=== PATIENT | female | born 1945 | race Caucasian/White ===

== ENCOUNTER 2017-06-08 12:42 | Emergency (ER) | payer MEDICARE, OTHER ==
[~2017-06-08] VITALS: Ht 160 cm; Wt 60.3 kg
[~2017-06-08 12:42] MED LIST: ASPIRIN EC325 MG PO; FLUOCINONIDE15 G1 TOP; HYDROCODON-ACE1 EA10 PO; KEFLEX500 MG PO; LIDODERM700 MG TOP; NAPROXEN500 MG PO; NORCO 10-325 T1 EACH PO; NORCO 5-325 TA1 EACH PO; OMEPRAZOLE20 MG PO; ZOFRAN ODT4 MG PO; ZOLOFT100 MG PO
== END 2017-06-08 14:50 | disposition home or self-care (01) ==
LOC: ED 12:42
DX: S06.0X0A Concussion without loss of consciousness, initial encounter (principal); S01.81XA Laceration without foreign body of other part of head, initial encounter; K21.9 Gastro-esophageal reflux disease without esophagitis; S01.01XA Laceration without foreign body of scalp, initial encounter; Z91.040 Latex allergy status; Z88.2 Allergy status to sulfonamides; Z90.710 Acquired absence of both cervix and uterus; Z79.82 Long term (current) use of aspirin; W10.8XXA Fall (on) (from) other stairs and steps, initial encounter
CPT/HCPCS: 70450; 90471; 90715; 99284

== ENCOUNTER 2024-10-18 09:39 | Observation (INO) | payer MEDICARE, OTHER ==
[~2024-10-18] VITALS: Ht 160 cm
[2024-10-18 10:04] LABS: BASOPHILS 0.7 % (0-2); EOSINOPHILS 4.3 % (0-6); HEMATOCRIT 41.5 % (35.0-50.0); HEMOGLOBIN 13.8 g/dL (12.0-18.0); LYMPHOCYTES 30.2 % (24-44); MCH 32.6 (27-36); MCHC 33.3 g/dl (30-36); MONOCYTES 8.3 % (0-12); NEUTROPHILS 56.5 % (39-80); PLATELET COUNT 234 K/uL (140-440); RBC 4.24 M/ul (4.3-5.7)
[2024-10-18 10:19] LABS: ALBUMIN 3.1 g/dL (3.4-5.0); ALBUMIN/GLOBULIN RATIO 0.82 (1.1-2.4); ANION GAP 9.2 (7-21); BILIRUBIN, TOTAL 0.3 ng/dL (0.2-1.0); BUN/CREATININE RATIO 12.61 (6.0-28.6); CALCIUM 8.8 mg/dL (8.5-10.1); CREATININE, SERUM 1.11 mg/dL (0.55-1.02); POTASSIUM 4.2 mmol/L (3.5-5.1); PROTEIN, TOTAL 6.9 g/dL (6.4-8.2)
[2024-10-18 10:26] LABS: INR 0.95 (0.80-1.30)
[2024-10-18] MEDS ORDERED: CLOPIDOGREL BISULFATE 75 MG TAB PO ONE (11:15)
[2024-10-18] MEDS ORDERED: ASPIRIN 325 MG TAB PO ONE (11:15)
[2024-10-18 11:27] LABS: BILIRUBIN, URINE NEGATIVE (negative); BLOOD/HGB, URINE NEGATIVE (Negative); KETONE, URINE NEGATIVE (Negative); LEUK ESTERASE, URINE NEGATIVE (negative); NITRITE, URINE NEGATIVE (negative)
[2024-10-18] MEDS ORDERED: PHARMACY RENAL DOSE ADJUSTMENT 1 DOSE MISC PO SCH (12:00)
--- NOTE | 2024-10-18 12:30 | NUR ---
PT ARRIVED TO FLOOR, REPORT RECEIVED FROM [employer] SALES REPRESENTATIVE. PT TRANSFERS HERSELF FROM STRETCHER TO HOSPITAL BED WITHOUT ASSISTANCE.
[2024-10-18 12:38] LABS: COLLECTION TYPE, URINE CATH
[2024-10-18 12:39] VITALS: BP 137/68
--- NOTE | 2024-10-18 13:40 | NUR ---
INITIAL ASSESSMENT COMPLETE. PT IV FLUSHES WNL. PT CURRENTLY REPORTING NO PAIN. LUNG SOUNDS CLEAR THROUGHOUT, ON ROOM AIR. HEART TONES HEARD WNL, PT IS ON TELE #1 AND IN SINUS RHYTHM. BOWEL TONES ACTIVE, NO TENDERNESS TO PALPATION, NO NAUSEA REPORTED. PULSES 2+ IN ALL EXTREMETIES, NO NUMBNESS OR TINGLING REPORTED. DIME SIZED REDNESS NOTED TO OUTSIDE OF R SMALL TOE, BLANCHABLE AND NOT PAINFUL. PT IS WEARING NON-SKID SOCKS FROM HOME, REPLACED WITH FRESH NON-SKID SOCKS. NIH PERFORMED WITH A SCORE OF 0. PT HAS SOME WEAKNESS TO R THIGH FROM PREVIOUS FALL AND CANNOT LIFT THIS LEG HIGH OFF THE BED BUT THE LEG DOES NOT DRIFT. PT IS ALERT AND ORIENTED X4, CONVERSATIONAL. PTs FAMILY MEMBER PRESENT IN ROOM THROUGHOUT, ASSISTS WITH SOME INFORMATION NEEDED. PTs ONLY EXPRESSION OF DISTRESS IS IN REGARDS TO LOSING HER LICENSE IN MARCH OF THIS YEAR. SHE IS UPSET OVER THIS BUT PTs FAMILY MEMBER ASSURES SHE HAS RIDES APLENTY. ORTHOSTATIC PULSE/BLOOD PRESSURE PERFORMED AND IN VITALS. PT TRANSFERS TO [facility] [place] AND HAS 150CC CLEAR, YELLOW URINE. PULL-UP IN PLACE, PT TRANSFERS BACK TO THE BED. ER NURSE PERFORMED NENITA SWALLOW SCREEN IN ER AND PT PASSED. LUNCH TRAY IS SET UP BY MILDRED TORRES AND PT BEGINS TO EAT. NO OTHER NEEDS AT THIS TIME, CALL LIGHT AND PERSONAL BELONGINGS IN REACH.
[2024-10-18 13:53] VITALS: BP 134/84
--- NOTE | 2024-10-18 14:18 | NUR ---
PHYSICAL THERAPY IS WORKING WITH THE PATIENT AT THIS TIME.
--- NOTE | 2024-10-18 15:00 | NUR ---
PT COMPLETES MRI SCREENING FORM AND SIGNS. LUNCH TRAY REMOVED. NO OTHER NEEDS AT THIS TIME, CALL LIGHT AND PERSONAL BELONGINGS IN REACH.
[2024-10-18] MEDS ORDERED: LACTATED RINGER'S 1,000 ML IV ONE (15:30)
--- NOTE | 2024-10-18 15:46 | NUR ---
IMAGING TAKES PT OFF THE FLOOR IN WHEELCHAIR.
--- NOTE | 2024-10-18 16:24 | NUR ---
PT RETURNS FROM IMAGING VIA WHEELCHAIR. PT TRANSFERS BACK TO BED. TELE #1 RE-ATTACHED, IV BOLUS OF LR RUNNING PER ORDERS. NO OTHER NEEDS AT THIS TIME, CALL LIGHT AND PERSONAL BELONGINGS IN REACH.
[2024-10-18 17:03] VITALS: BP 100/75
[2024-10-18 17:24] VITALS: BP 100/75
--- NOTE | 2024-10-18 17:32 | NUR ---
PT SALINE LOCKED, BOLUS OF LR FINISHED, INPUT RECORDED. PT EATING SUPPER AND WATCHING TELEVISION, TALKATIVE. NO OTHER NEEDS AT THIS TIME, CALL LIGHT AND PERSONAL BELONGINGS IN REACH.
--- NOTE | 2024-10-18 18:24 | NUR ---
PT DINNER TRAY REMOVED. PT PROVIDED FRESH ICE WATER AND WARM BLANKETS, NO OTHER NEEDS AT THIS TIME. CALL LIGHT AND PERSONAL BELONGINGS IN REACH.
--- NOTE | 2024-10-18 19:31 | NUR ---
Pt report received from RNs Soheila Valadez and Lilli Vallejo Pt is A&O, resting in bed, watching television, s/o at bedside. Pt denies any pain or discomfort, denies needs at this time. White board updated. Call light in reach.
[2024-10-18 20:27] VITALS: BP 120/59
--- NOTE | 2024-10-18 20:30 | NUR ---
TELEGRAPH AND TELETYPE OPERATOR OBTAINED VITALS AND I&O. PT STATES NO FURTHER NEEDS AT THIS TIME. CALL LIGHT WITHIN REACH ND FAMILY IN ROOM.
[2024-10-18 21:42] VITALS: BP 120/59
--- NOTE | 2024-10-19 00:10 | NUR ---
report received from raymond jimenez, pt resting in bed with eyes closed. on ra, rr even and unlabored. no distress noted. pt has tele#[address], sinus rhythm with hr 80's. call light in reach and bed alarm turned on for safety.
[2024-10-19 01:17] VITALS: BP 130/64
--- NOTE | 2024-10-19 01:29 | NUR ---
floor specialist recently in room to collect vs. this rn and completed focused assessment. pt a/ox4, speech clear and pt interactive with staff. pt educated importance to use call light before getting oob to void for safety, pt states, "i;ve gone two times tonight". bed alarm remains on and floor specialist elinor in room to assist pt. pt states, "i just go nice and slow". iv site remains wnl and saline locked.
[2024-10-19 01:41] VITALS: BP 130/64
--- NOTE | 2024-10-19 03:36 | NUR ---
rounded on pt, pt resting in bed on ra. rr even and unlabored. no distress noted. call light in reach. bed alarm remains on for safety.
--- NOTE | 2024-10-19 04:44 | NUR ---
ROUNDED ON pt, pt RESTING IN BED WITH EYES CLOSED. ON RA, RR EVEN AND UNLABORED. NO DISTRESS NOTED. CALL LIGHT IN REACH AND BED ALARM REMAINS ON FOR SAFETY.
[2024-10-19 05:12] VITALS: BP 127/63
[2024-10-19 05:30] LABS: BASOPHILS 0.8 % (0-2); EOSINOPHILS 6.6 % (0-6); HEMATOCRIT 35.8 % (35.0-50.0); HEMOGLOBIN 12.3 g/dL (12.0-18.0); LYMPHOCYTES 41.8 % (24-44); MCH 33.1 (27-36); MCHC 34.3 g/dl (30-36); MCV 96.6 fl (81-99); MONOCYTES 8.2 % (0-12); NEUTROPHILS 42.6 % (39-80); PLATELET COUNT 212 K/uL (140-440); RDW 14.2 (10.5-15.0)
--- NOTE | 2024-10-19 05:33 | NUR ---
BED ALARM ANSWERED. PT SITTING ON EDGE OF BED STATING THE NEED TO USE BATHROOM. TOOL CRIB SUPERVISOR SBA TO BSC. PT VOIDED AND ASSISTED BACK TO BED. OUTPUT MEASURED. PT GIVEN CUP OF COFFEE UPON REQUEST. PT STATES NO FURTHER NEEDS AT THIS TIME. CALL LIGHT WITHIN REACH AND BED ALARM ON.
--- NOTE | 2024-10-19 05:34 | NUR ---
ROUNDED ON pt, pt AWAKE AND RESTING IN BED, ON RA. RR EVEN AND UNLABORED, DRINKING HER COFFEE AND WATCHING TV. pt PLEASANT AND INTERACTIVE WITH STAFF, DENIES NEEDS OR CONCERNS. CALL LIGHT IN REACH. BED ALARM REMAINS ON.
[2024-10-19 05:42] LABS: BUN/CREATININE RATIO 12.12 (6.0-28.6); CALCIUM 8.3 mg/dL (8.5-10.1); CREATININE, SERUM 0.99 mg/dL (0.55-1.02); MAGNESIUM 1.8 mg/dL (1.8-2.4)
--- NOTE | 2024-10-19 06:19 | NUR ---
pt HAD UNEVENTFUL NIGHT, SLEPT WELL DURING THE NIGHT. VSS, pt REMAINED ON RA. TELE IN PLACE. pt EDUCATED ON IMPORTANCE OF USING CALL LIGHT BEFORE GETTING OOB, VERBALIZED UNDERSTANDING BY pt-BED ALARM ON TO ENSURE SAFETY. pt SBA, USES WALKER AT BASELINE FOR LONGER DISTANCES, EXAMPLE IN THE HALLWAY. pt STEADY ON FEET, DENIED S/SX SUCH DIZZINESS/LIGHTHEADEDNESS WITH AMBULATION. WORKING WITH PT/OT. TOLERATING REGULAR DIET, DENIED NAUSEA. IV SITE WNL, SALINE LOCKED.
--- NOTE | 2024-10-19 06:35 | NUR ---
BED ALARM ANSWERED. PT SITTING AT EDGE OF BED STATING THAT SHE NEEDED TO USE THE BATHROOM. BELL CLERK SBA TO BSC. PT VOIDED AND ASSISTED BACK TO BED. OUTPUT MEASURED. PT REMINDED TO USE CALL LIGHT. PT STATES NO OTHER NEEDS AT THIS TIME. CALL LIGHT WITHIN REACH AND BED ALARM ON.
--- NOTE | 2024-10-19 07:00 | NUR ---
REPORT RECEIVED FROM OPTICAL INSTRUMENT INSPECTOR MILDRED MADDOX. PATIENT IS LYING IN BED WITH LIGHTS ON AND THE BED ALARM IS ON. PATIENT STATED NO FURTHER NEEDS AT THIS TIME. CALL LIGHT AND PERSONAL BELONGINGS ARE WITHIN REACH.
--- NOTE | 2024-10-19 07:57 | NUR ---
UR CLINICAL REVIEW: 2MN ABRIL, MEETS OBS MEDICARE OBS 10/18/24 @ 1142 ORDER MATCHES REG NO AUTH REQUIRED PER MEDICARE RULES PLAN TO DC TO HOME WHEN MEDICALLY STABLE.
--- NOTE | 2024-10-19 08:15 | NUR ---
0900 MEDICATIONS ADMINISTERED PER THE EMAR. FULL ASSESSMENT COMPLETE AND DOCUMENTED IN THE CHART. PATIENT IS LYING IN BED WITH HOB ELEVATED. PATIENT IS ALERT AND ORIENTED TIMES FOUR. PATIENT IS ON TELEMETRY NUMBER 1 AND IS IN NORMAL SINUS RHYTHM. CARDIAC WITH NORMAL S1 AND S2 NOTED. RADIAL PULSES ARE STRONG BILATERALLY. NO EDEMA NOTED. PATIENT IS ON ROOM AIR AND LUNG SOUNDS ARE CLEAR BILATERALLY. PATIENT IS ON A REGULAR DIET AND BOWEL TONES ARE ACTIVE IN ALL FOUR QUADRANTS. PATIENT LAS BM WAS 10/18/24. PATIENT WITH GENERALIZED WEAKNESS NOTED. PATIENT AMBULATES WITH 1PA AND FWW. BEDSIDE COMMODE USED. PATIENT WITH IV IN THE LAC FLUSHED WITH 10 ML NORMAL SALINE AND IS SALINE LOCKED. IV DRESSING IS CLEAN, DRY, AND INTACT. PATIENT WITH NO COMPLAINTS OF PAIN. SENSATION INTACT WITH NO COMPLAINTS OF NUMBNESS AND TINGLING. PATIENT STATED NO FURTHER NEEDS AT THIS TIME. CALL LIGHT AND PERSONAL BELONGINGS ARE WITHIN REACH.
--- NOTE | 2024-10-19 08:31 | NUR ---
PATIENT IN BED AT THIS TIME. CRAFT MANAGER ASSISTED PATIENT TO BATHROOM AND THEN TO HER CHAIR. CALL LIGHT WITHIN REACH, NO FURTHER NEEDS AT THIS TIME.
[2024-10-19] MEDS ORDERED: PRESERVISION A1 EAC3 PO (08:54)
--- NOTE | 2024-10-19 08:55 | NUR ---
MED REC COMPLETE
[2024-10-19] MEDS ORDERED: ENOXAPARIN SODIUM 40 MG/0.4 ML SYR SUB-Q SCH (09:00)
[2024-10-19] MEDS ORDERED: FLU VACC TS2024(65UP)/MF59C/PF 1 EACH SYR IM SCH (09:00)
[2024-10-19 09:21] VITALS: BP 127/60
--- NOTE | 2024-10-19 09:22 | NUR ---
PATIENT IS SITTING UPRIGHT IN THE CHAIR WITH BLE ELEVATED. KERVIN FUNEZ IS IN THE ROOM AT THIS TIME DOING INTAKE AND OUTPUT WELL VITAL SIGNS. PATIENT STATED NO FURTHER NEEDS AT THIS TIME. CALL LIGHT AND PERSONAL BELONGINGS ARE WITHIN REACH.
[2024-10-19 09:30] VITALS: BP 127/60
--- NOTE | 2024-10-19 09:30 | NUR ---
Spoke with Xena. She lives in a one story home with one step. Her cousin, Leigha, is her POA. Pt states the DMV removed her license. She feels she does very well.She has help from friends that drive her and help her to grocery shop. She states he spouse planned well for long-term and left her well off. She denies any needs. Wants to go home, she is unsure why she came into the hospital.
--- NOTE | 2024-10-19 09:53 | NUR ---
PATIENT IN BED AT THIS TIME. CONTROL AND RECOVERY COMBAT RESCUE ASSISTED PATIENT BACK TO BED FROM BATHROOM. CONTROL AND RECOVERY COMBAT RESCUE CHARTED PATIENTS VOIDINGS. CALL LIGHT WITHIN REACH, NO FURTHER NEEDS AT THIS TIME.
--- NOTE | 2024-10-19 10:00 | NUR ---
PATIENT IS LYING IN BED WITH HER COUSIN SITTING IN THE CHAIR AT BEDSIDE AND TALKING. CALL LIGHT AND PERSONAL BELONGINGS ARE WITHIN REACH.
--- NOTE | 2024-10-19 10:57 | NUR ---
KERVIN FUNEZ IN ROOM AT THIS TIME GETTING PATIENT READY FOR SHOWER. PATIENT HAS NO FURTHER NEEDS AT THIS TIME.
--- NOTE | 2024-10-19 11:00 | NUR ---
Spoke with vanessa Ahuja. She is here with her mother. She states Xena does not do as well as she leads people to believe. She states pt has lives close to a year in her home, but has not unpacked. She does not want anyone to help her clear and the house is dirty. She allows the neighbors to assist her to shop. Per Leigha, pt has dementia and wandered off at the grocery store. She found her checking out and pt had a basket full of groceries and did not remember or know why she put them in her cart. Family would like her to move into a memory care or [facility], pt refuses. They will cont. to assist pt as long as she is safe in the home. They did try calling [facility] and were told pt was not a danger and had the right to make her own choices.
--- NOTE | 2024-10-19 11:35 | NUR ---
PATIENT IS LYING IN BED WITH TWO VISITORS AT THE BEDSIDE AND KERVIN FUNEZ SITTING AT THE COMPUTER. PATIENT STATED NO NEEDS AT THIS TIME. PATIENT TO EAT LUNCH AND THEN REQUESTING TO GO HOME. PATIENT CALL LIGHT AND PERSONAL BELONGINGS ARE WITHIN REACH.
--- NOTE | 2024-10-19 11:43 | NUR ---
PATIENT WASHED HER BODY AND WASHED HER HAIR. I HELPED HER WASH HER BACK AND RINSE HER HAIR. SHE HAS A NEW GOWN ON.
--- NOTE | 2024-10-19 11:47 | NUR ---
WHEN I CAME IN THIS MORNING TO UPDATE HER WHITE BOARD SHE NEEDED TO USE THE BEDSIDE COMMODE.
--- NOTE | 2024-10-19 12:49 | NUR ---
PATIENT IS SITTING AT THE EDGE OF BED AND EATING LUNCH. PATIENT WITH A VISITOR SITTING IN THE CHAIR AT BEDSIDE. PATIENT EDUCATED TO CALL RN WHEN FINISHED TO GO OVER DISCHARGE INSTRUCTIONS AND EDUCATION. PATIENT EXPRESSED UNDERSTANDING. PATIENT STATED NO FURTHER NEEDS AT THIS TIME. CALL LIGHT AND PERSONAL BELONGINGS ARE WITHIN REACH.
[2024-10-19] MEDS ORDERED: FLU VACC TS2024(65UP)/MF59C/PF 1 EACH SYR ONE (13:30)
--- NOTE | 2024-10-19 19:22 | EKG ---
[facility] [address] [facility] [address] [place] [address] Signed Normal sinus rhythm Normal ECG No previous ECGs available Confirmed by Neo Phelan MD ([id number]) on 10/19/2024 7:21:58 PM Electronically Signed By: NEO PHELAN MD 10/19/241921 PATIENT NAME: DAISHA LEMON Electrocardiogram DATE OF : 43 PHYSICIAN: NEO PHELAN MD REPORT #: [id number] REPORT IS CONFIDENTIAL AND NOT TO BE RELEASED WITHOUT AUTHORIZATION
== END 2024-10-19 13:45 | disposition home or self-care (01) ==
LOC: ED 09:39 → MS 09:41
PROVIDERS: Emergency Medicine; ADMIT Student in an Organized Health Care Education/Training Program; ATTEND Student in an Organized Health Care Education/Training Program
DX: I95.1 Orthostatic hypotension (principal); Z88.2 Allergy status to sulfonamides; Z90.710 Acquired absence of both cervix and uterus
CPT/HCPCS: 36415; 51701; 70450; 70496; 70498; 70551; 71045; 80048; 80053; 81003; 83735; 85025; 85610; 90694; 93005; 93010; 96360; 96372; 97161; 99285-25; G0378; J1650; J7121; Q9967